=== PATIENT | female | born 1975 | race Caucasian/White ===

== ENCOUNTER 2017-12-31 09:37 | Outpatient (REF) | payer MEDICAID, SELFPAY ==
[2017-12-31 12:53] LABS: HCT 42.4 % (36.0-46.0); HGB 13.5 g/dL (12.0-15.5); Mean Corp. HGB Concentration 31.8 g/dL (32.0-36.0); Mean Corpuscular Hemoglobin 28.2 pg (27.0-33.0); Mean Corpuscular Volume 88.5 fL (80-95); Mean Platelet Volume 10.8 fL (8.0-11.0); Platelet Count 192 x1000/uL (130-400); RBC 4.79 m/cumm (4.00-5.20); RBC Distribution Width 14.2 % (11.7-14.6); White Blood Cell Count 8.23 k/cumm (4.4-10.8)
[2017-12-31 13:09] LABS: ALT 42 U/L (12-78); AST 26 U/L (15-37); Albumin 3.9 g/dL (3.4-5.0); Alkaline Phosphatase 61 U/L (46-116); Anion Gap 12.4 mmol/L (3-11); BUN 14 mg/dL (7-18); Bilirubin, Total 0.4 mg/dL (0.2-1.0); CO2 24.6 mmol/L (21.0-32.0); CREATININE 0.93 mg/dL (0.55-1.02); Chloride 102 mmol/L (98-107); Cholesterol 169 mg/dL (50-200); Glucose 155 mg/dL (70-100); HDL Cholesterol 45 mg/dL (40-60); LDL CHOLESTEROL 109 mg/dL (<100); Potassium 4.2 mmol/L (3.5-5.1); Sodium 139 mmol/L (136-145); Total Protein 7.2 g/dL (6.4-8.2); Triglyceride 117 mg/dL (30-150)
== END 2017-12-31 09:57 ==
LOC: NCHCN 09:37
PROVIDERS: PCP Internal Medicine Sleep Medicine; Visit Provider Family Medicine
DX: E11.9 Type 2 diabetes mellitus without complications (principal); F41.8 Other specified anxiety disorders; M79.7 Fibromyalgia; E66.9 Obesity, unspecified; Z00.00 Encounter for general adult medical examination without abnormal findings
CPT/HCPCS: 80053; 80061; 83721; 85027

== ENCOUNTER 2018-05-29 10:43 | Outpatient (CLI) | payer MEDICAID, SELFPAY ==
[2018-05-29 11:33] LABS: HCT 40.7 % (36.0-46.0); HGB 12.8 g/dL (12.0-15.5); Mean Corp. HGB Concentration 31.4 g/dL (32.0-36.0); Mean Corpuscular Volume 89.1 fL (80-95); Mean Platelet Volume 11.5 fL (8.0-11.0); Platelet Count 210 x1000/uL (130-400); RBC 4.57 m/cumm (4.00-5.20); RBC Distribution Width 13.9 % (11.7-14.6); White Blood Cell Count 6.47 k/cumm (4.4-10.8)
[2018-05-29 12:35] LABS: ALT 47 U/L (12-78); AST 28 U/L (15-37); Albumin 4.1 g/dL (3.4-5.0); Alkaline Phosphatase 60 U/L (46-116); Anion Gap 10.3 mmol/L (3-11); BUN 12 mg/dL (7-18); Bilirubin, Total 0.6 mg/dL (0.2-1.0); CO2 26.7 mmol/L (21.0-32.0); CREATININE 0.79 mg/dL (0.55-1.02); Calcium 9.3 mg/dL (8.5-10.1); Chloride 100 mmol/L (98-107); Glucose 101 mg/dL (70-100); Potassium 4.2 mmol/L (3.5-5.1); Sodium 137 mmol/L (136-145); Total Protein 7.3 g/dL (6.4-8.2)
== END 2018-05-29 11:03 ==
PROVIDERS: PCP Family Medicine; Visit Provider Family Medicine
DX: G47.00 Insomnia, unspecified (principal); Z98.84 Bariatric surgery status
CPT/HCPCS: 36415; 80053; 85027

== ENCOUNTER 2018-07-07 21:00 | Outpatient (REF) | payer MEDICAID, SELFPAY | END 2018-07-07 21:20 | LOC: NCHCN 21:00 | PROVIDERS: PCP Family Medicine; Visit Provider Family Medicine | DX: R35.0 Frequency of micturition (principal) | CPT/HCPCS: 87077; 87086; 87186 ==